=== PATIENT | female | born 1935 | race Caucasian/White ===

== ENCOUNTER 2016-12-18 10:06 | Outpatient (CLI) | payer OTHER ==
[2016-06-07 11:53] VITALS: BMI 25.2
[~2016-12-18 10:06] MED LIST: ASCO120C2 PO; ASPI81TA2 PO; CHOL100028 PO; HYDR12.585 PO; LISI10TA5 PO; OMEP40CA33 PO; SIMV40TA2 PO; TOPXL100 PO
== END 2016-12-18 18:55 | disposition home or self-care (01) ==
LOC: SMA 10:06
PROVIDERS: ATTEND Family Medicine
DX: Z12.31 Encounter for screening mammogram for malignant neoplasm of breast (principal)
CPT/HCPCS: G0202

== ENCOUNTER 2017-08-27 09:58 | Inpatient (IN) | payer OTHER ==
[~2017-08-27] VITALS: Ht 162.6 cm; Wt 67.1 kg
[2017-08-27] MEDS ORDERED: GABAPENTIN 300 MG CAPSULE ONE (10:38)
[2017-08-27] MEDS ORDERED: CELECOXIB 200 MG CAPSULE ONE (10:38)
[2017-08-27] MEDS ORDERED: ACETAMINOPHEN 500 MG TABLET ONE (10:38)
[2017-08-27] MEDS ORDERED: oxyCODONE HCL 10 MG TAB.ER.12H PO ONE ×2 (10:39→11:00)
[2017-08-27] MEDS ORDERED: TRANEXAMIC ACID 650 MG TABLET ONE (10:40)
[2017-08-27] MEDS ORDERED: GABAPENTIN 300 MG CAPSULE PO ONE (11:00)
[2017-08-27] MEDS ORDERED: ACETAMINOPHEN 500 MG TABLET PO ONE (11:00)
[2017-08-27] MEDS ORDERED: CEFAZOLIN 2 GM IVPB PREMIX 50 ML IV ONE (11:00)
[2017-08-27] MEDS ORDERED: CELECOXIB 200 MG CAPSULE PO ONE (11:00)
[2017-08-27] MEDS ORDERED: NACL 0.9% 1,000 ML IV ONE (11:00)
[2017-08-27] MEDS ORDERED: TRANEXAMIC ACID 650 MG TABLET PO ONE (11:00)
[2017-08-27] MEDS ORDERED: MUPIROCIN 2% TOPICAL OINTMENT 22 GM TP PRN (11:00)
[2017-08-27] MEDS ORDERED: POLYMYXIN 500,000/BACIT.10,000 UNITS in NS IRR 1 L IR ONE (11:04)
[2017-08-27] MEDS ORDERED: fentaNYL CITRATE/PF 100 MCG/2 ML AMP IVP ONE (11:50)
[2017-08-27] MEDS ORDERED: MIDAZOLAM HCL 5 MG/5 ML VIAL IVP ONE (11:50)
[2017-08-27] MEDS ORDERED: KETOROLAC TROMETHAMINE 30 MG VIAL IVP ONE (11:50)
[2017-08-27] MEDS ORDERED: SEVOFLURANE 15 MIN GAS INH ONE (11:50)
[2017-08-27] MEDS ORDERED: NS 50 ML BAG IV ONE (11:50)
[2017-08-27] MEDS ORDERED: ROPIVACAINE HCL/PF 5 MG/ML 0.5% 30 ML VIAL INJ ONE (11:50)
[2017-08-27] MEDS ORDERED: TRANEXAMIC ACID 1,000 MG/10 ML VIAL IV ONE (11:50)
[2017-08-27] MEDS ORDERED: PROPOFOL 200MG/ 20ML VIAL (DIPRIVAN) IV ONE (11:50)
[2017-08-27] MEDS ORDERED: ROCURONIUM BROMIDE 10 MG/ML (ZEMURON) IV ONE (11:50)
[2017-08-27] MEDS ORDERED: VANCOMYCIN HCL 1000 MG/VIAL IV ONE (11:50)
[2017-08-27] MEDS ORDERED: LR 1,000 ML IV.SOLN IV ONE (11:50)
[2017-08-27] MEDS ORDERED: EPINEPHrine 1 MG/ML AMP IVP ONE (11:50)
[2017-08-27] MEDS ORDERED: MEPERIDINE HCL/PF 100 MG/ML AMP IM ONE (11:50)
[2017-08-27] MEDS ORDERED: ONDANSETRON HCL 4 MG/2 ML VIAL IVP ONE (11:50)
[2017-08-27] MEDS ORDERED: MORPHINE SULFATE 10MG/10ML PF AMP EP ONE (11:50)
[2017-08-27] MEDS ORDERED: TRAM1TAB33 PO (12:23)
[2017-08-27] MEDS ORDERED: LISI-217 PO (12:23)
[2017-08-27] MEDS ORDERED: ROPIVACAINE 0.2% 550 ML INJ SCH ×2 (13:23→13:55)
[2017-08-27] MEDS ORDERED: LR 1,000 ML IV SCH (13:23)
[2017-08-27] MEDS ORDERED: NALBUPHINE HCL 10 MG/ML AMP IVP PRN (13:30)
[2017-08-27] MEDS ORDERED: ONDANSETRON HCL 4 MG/2 ML VIAL IVP PRN (13:30)
[2017-08-27] MEDS ORDERED: DIPHENHYDRAMINE INJ 50 MG/ML VIAL IVP PRN (13:30)
[2017-08-27] MEDS ORDERED: HYDROmorphone 1 MG INJ. 1 MG/ML AMPUL IVP PRN (13:30)
[2017-08-27] MEDS ORDERED: MORPHINE SULFATE 10 MG/ML VIAL IVP PRN ×4 (13:30→14:00)
[2017-08-27] MEDS ORDERED: METOCLOPRAMIDE HCL 10 MG/2 ML VIAL IVP PRN (13:30)
[2017-08-27] MEDS ORDERED: oxyCODONE HCL 5 MG TABLET PO PRN ×2 (14:00)
[2017-08-27] MEDS ORDERED: SENNOSIDES 8.6 MG TABLET PO PRN (14:00)
[2017-08-27] MEDS ORDERED: KETOROLAC TROMETHAMINE 15 MG VIAL IVP PRN (14:00)
[2017-08-27] MEDS: D5LR 1,000 ML IV SCH ×2 (16:05→18:50)
[2017-08-27 16:28] VITALS: BP_SYST 136
[2017-08-27 16:30] VITALS: BP_SYST 136
[2017-08-27 17:00] VITALS: BP_SYST 136
[2017-08-27 18:49] VITALS: BP_SYST 98
[2017-08-27] MEDS: CEFAZOLIN 1 GM IVPB PREMIX 50 ML IV SCH (18:49)
[2017-08-27 19:30] VITALS: BP_SYST 93
[2017-08-27 19:31] LABS: BASOPHILS # (AUTO) 0.1 K/uL (0.0-0.2); BASOPHILS % (AUTO) 0.7 % (0.0-2.0); HEMOGLOBIN 10.1 g/dL (12.0-16.0); LYMPHOCYTES % (AUTO) 8.3 % (20.5-51.5); MEAN CORPUSCULAR HEMOGLOBIN 28 pg (27-31); MEAN CORPUSCULAR HGB CONC 33 % (32-36); MEAN CORPUSCULAR VOLUME 86 fL (79.0-98.0); MONOCYTES # (AUTO) 0.4 K/uL (0.0-1.0); MONOCYTES % (AUTO) 3.3 % (1.7-9.3); NEUTROPHILS # (AUTO) 10.2 K/uL (1.8-7.7); NEUTROPHILS % (AUTO) 87.7 % (40.0-70.0); PLATELET COUNT (AUTO) 186 K/uL (130-430); RED BLOOD CELL COUNT(AUTO) 3.62 MIL/uL (4.2-6.2); RED CELL DISTRIBUTION WIDTH 12.4 % (9.0-15.0); WHITE BLOOD COUNT (AUTO) 11.7 K/uL (4.8-10.8)
[2017-08-27] MEDS ORDERED: NS 500 ML IV ONE (19:55)
[2017-08-27 20:58] VITALS: BP_SYST 118
[2017-08-27] MEDS: ACETAMINOPHEN 500 MG TABLET PO SCH (21:00)
[2017-08-27] MEDS: CHOLECALCIFEROL (VITAMIN D3) 2,000 UNIT TABLET PO SCH (21:00)
[2017-08-27] MEDS: CELECOXIB 200 MG CAPSULE PO SCH (21:00)
[2017-08-27] MEDS: GABAPENTIN 300 MG CAPSULE PO SCH (21:00)
[2017-08-28] VITALS (7 sets, daily range): BP systolic 99–142
[2017-08-28] MEDS: CEFAZOLIN 1 GM IVPB PREMIX 50 ML IV SCH ×2 (02:21→09:37)
[2017-08-28] MEDS: D5LR 1,000 ML IV SCH ×3 (02:22→21:02)
[2017-08-28 06:14] LABS: BASOPHILS # (AUTO) 0.1 K/uL (0.0-0.2); BASOPHILS % (AUTO) 0.7 % (0.0-2.0); HEMATOCRIT 29.8 % (36-48); HEMOGLOBIN 9.6 g/dL (12.0-16.0); LYMPHOCYTES # (AUTO) 0.8 K/uL (1.0-5.5); LYMPHOCYTES % (AUTO) 7.7 % (20.5-51.5); MEAN CORPUSCULAR HEMOGLOBIN 28 pg (27-31); MEAN CORPUSCULAR HGB CONC 32 % (32-36); MEAN CORPUSCULAR VOLUME 85 fL (79.0-98.0); MONOCYTES # (AUTO) 0.5 K/uL (0.0-1.0); MONOCYTES % (AUTO) 4.4 % (1.7-9.3); NEUTROPHILS % (AUTO) 87.2 % (40.0-70.0); PLATELET COUNT (AUTO) 186 K/uL (130-430); RED BLOOD CELL COUNT(AUTO) 3.49 MIL/uL (4.2-6.2); RED CELL DISTRIBUTION WIDTH 12.3 % (9.0-15.0); WHITE BLOOD COUNT (AUTO) 10.4 K/uL (4.8-10.8)
[2017-08-28 06:49] LABS: ANION GAP 7 (5-15); CALCIUM 8.2 mg/dL (8.4-11.0); CHLORIDE 104 mmol/L (98-107); CREATININE 0.58 mg/dL (0.55-1.30); GLUCOSE 185 mg/dL (70-99); SODIUM SERUM 138 mmol/L (136-145); UREA NITROGEN, BLOOD 17 mg/dL (8-21)
[2017-08-28] MEDS: METOPROLOL SUCCINATE 50 MG TAB.SR.24H (TOPROL XL) PO SCH ×2 (09:00→11:40)
[2017-08-28] MEDS: LISINOPRIL 10 MG TABLET (PRINIVIL) PO SCH ×2 (09:00→11:39)
[2017-08-28] MEDS ORDERED: LISINOPRIL PO SCH (09:00)
[2017-08-28] MEDS ORDERED: HCTZ PO SCH (09:00)
[2017-08-28] MEDS: HYDROCHLOROTHIAZIDE 12.5 MG CAPSULE (HCTZ) PO SCH ×2 (09:00→11:39)
[2017-08-28] MEDS: RIVAROXABAN 10 MG TABLET PO SCH (09:36)
[2017-08-28] MEDS: CELECOXIB 200 MG CAPSULE PO SCH ×2 (09:37→21:03)
[2017-08-28] MEDS: OMEPRAZOLE 20 MG CAPSULE.DR (PriLOSEC) PO SCH (09:37)
[2017-08-28] MEDS: SIMVASTATIN 40 MG TABLET PO SCH (09:37)
[2017-08-28] MEDS: CHOLECALCIFEROL (VITAMIN D3) 2,000 UNIT TABLET PO SCH ×2 (09:37→21:07)
[2017-08-28] MEDS: ACETAMINOPHEN 500 MG TABLET PO SCH ×3 (09:37→21:07)
[2017-08-28] MEDS: GABAPENTIN 300 MG CAPSULE PO SCH (21:04)
[2017-08-29 00:59] VITALS: BP_SYST 97
[2017-08-29] MEDS: D5LR 1,000 ML IV SCH (05:32)
[2017-08-29 06:32] LABS: CALCIUM 8.6 mg/dL (8.4-11.0); CHLORIDE 109 mmol/L (98-107); CREATININE 0.48 mg/dL (0.55-1.30); GLUCOSE 125 mg/dL (70-99); POTASSIUM 3.6 mmol/L (3.5-5.1); SODIUM SERUM 141 mmol/L (136-145); UREA NITROGEN, BLOOD 9 mg/dL (8-21)
[2017-08-29 06:33] LABS: BASOPHILS % (AUTO) 0.1 % (0.0-2.0); EOSINOPHILS % (AUTO) 0.1 % (0.0-4.0); HEMATOCRIT 26.7 % (36-48); HEMOGLOBIN 8.7 g/dL (12.0-16.0); LYMPHOCYTES # (AUTO) 0.9 K/uL (1.0-5.5); LYMPHOCYTES % (AUTO) 13.4 % (20.5-51.5); MEAN CORPUSCULAR HEMOGLOBIN 28 pg (27-31); MEAN CORPUSCULAR HGB CONC 33 % (32-36); MEAN CORPUSCULAR VOLUME 85 fL (79.0-98.0); MONOCYTES # (AUTO) 0.5 K/uL (0.0-1.0); MONOCYTES % (AUTO) 6.5 % (1.7-9.3); NEUTROPHILS # (AUTO) 5.6 K/uL (1.8-7.7); NEUTROPHILS % (AUTO) 79.9 % (40.0-70.0); PLATELET COUNT (AUTO) 157 K/uL (130-430); RED BLOOD CELL COUNT(AUTO) 3.14 MIL/uL (4.2-6.2); RED CELL DISTRIBUTION WIDTH 12.3 % (9.0-15.0)
[2017-08-29 06:40] LABS: ANION GAP < 3 (5-15)
[2017-08-29 08:33] VITALS: BP_SYST 132
[2017-08-29] MEDS: SIMVASTATIN 40 MG TABLET PO SCH (10:10)
[2017-08-29] MEDS: CHOLECALCIFEROL (VITAMIN D3) 2,000 UNIT TABLET PO SCH (10:10)
[2017-08-29] MEDS: METOPROLOL SUCCINATE 50 MG TAB.SR.24H (TOPROL XL) PO SCH (10:11)
[2017-08-29] MEDS: ACETAMINOPHEN 500 MG TABLET PO SCH ×2 (10:18→15:17)
[2017-08-29] MEDS: OMEPRAZOLE 20 MG CAPSULE.DR (PriLOSEC) PO SCH (10:19)
[2017-08-29] MEDS: RIVAROXABAN 10 MG TABLET PO SCH (10:20)
[2017-08-29] MEDS: CELECOXIB 200 MG CAPSULE PO SCH (10:20)
[2017-08-29] MEDS: LISINOPRIL 10 MG TABLET (PRINIVIL) PO SCH (10:20)
[2017-08-29] MEDS: HYDROCHLOROTHIAZIDE 12.5 MG CAPSULE (HCTZ) PO SCH (10:21)
[2017-08-29 12:11] VITALS: BP_SYST 143
[2017-08-29 16:31] VITALS: BP_SYST 129
[2017-08-29 16:49] VITALS: BP_SYST 111
[2017-08-30] MEDS ORDERED: ONDANSETRON HCL 4 MG/2 ML VIAL IVP PRN (14:00)
[2017-08-30] MEDS ORDERED: DIPHENHYDRAMINE HCL 25 MG CAPSULE PO PRN (14:00)
[2017-08-30] MEDS ORDERED: PROMETHAZINE HCL 25 MG/ML AMP IVP PRN (14:00)
== END 2017-08-29 17:28 | DRG 470 ==
LOC: SMU 09:58 → STU 16:45 → SMU 08-28 23:15
PROVIDERS: ADMIT Orthopaedic Surgery; ATTEND Orthopaedic Surgery
PROC: 0SRC0J9 Replacement of Right Knee Joint with Synthetic Substitute, Cemented, Open Approach (ICD-10-PCS; principal; 2017-08-27 12:00)
DX: M17.11 Unilateral primary osteoarthritis, right knee (principal); I10 Essential (primary) hypertension; Z96.652 Presence of left artificial knee joint
CPT/HCPCS: 36415; 80048; 85025; 87081; 88305; 88311; 94010; 97110-GP; 97116-GP; 97530-GP; C1713; C1776; J0171; J0690; J1885; J2175; J2250; J2274; J2405; J2704; J2795; J3010; J3370; J3490; J7030; J7040; J7120

== ENCOUNTER 2017-10-09 10:35 | Day surgery (SDC) | payer OTHER ==
[~2017-10-09] VITALS: Ht 162.6 cm; Wt 63.5 kg
[~2017-10-09 10:35] MED LIST changes: +LISI-217 PO; +TRAM1TAB33 PO
[2017-10-09] MEDS ORDERED: CEFAZOLIN SOD 2 GM in D5W 50 ML IV ONE (12:00)
[2017-10-09] MEDS ORDERED: HYDROcodone/ACETAMIN 7.5-325 MG TAB PO PRN (12:30)
[2017-10-09] MEDS ORDERED: PROMETHAZINE HCL 25 MG/ML AMP IVP PRN (12:30)
[2017-10-09] MEDS ORDERED: DIPHENHYDRAMINE HCL 25 MG CAPSULE PO PRN (12:30)
[2017-10-09] MEDS ORDERED: MORPHINE 4 MG/ML INJ. SYRINGE IVP PRN (12:30)
[2017-10-09] MEDS ORDERED: ONDANSETRON HCL 4 MG/2 ML VIAL IVP PRN (12:30)
[2017-10-09] MEDS ORDERED: SENNOSIDES 8.6 MG TABLET PO PRN (12:30)
[2017-10-09] MEDS ORDERED: BUPIVACAINE /PF 0.75% 10 ML VIAL INJ ONE (12:45)
[2017-10-09] MEDS ORDERED: LR 1,000 ML IV.SOLN IV ONE (12:45)
[2017-10-09 13:54] VITALS: BP_SYST 116
[2017-10-09] MEDS ORDERED: NON-FORMULARY MEDICATION (Tramadol Hcl/Acetaminophen (Acetaminophn-Tramadol 325-37.5) 1 TA PO SCH (15:00)
[2017-10-09] MEDS: D5LR 1,000 ML IV SCH (15:37)
[2017-10-09 18:29] VITALS: BP_SYST 123
[2017-10-09 20:05] VITALS: BP_SYST 120
[2017-10-09] MEDS: HYDROcodone/ACETAMIN 5-325 MG TAB (NORCO/ VICODIN) PO PRN (20:08)
[2017-10-09] MEDS: CHOLECALCIFEROL (VITAMIN D3) 2,000 UNIT TABLET PO SCH (20:08)
[2017-10-09 23:57] VITALS: BP_SYST 98
[2017-10-10] MEDS: D5LR 1,000 ML IV SCH (00:07)
[2017-10-10 08:00] VITALS: BP_SYST 125
[2017-10-10] MEDS: HYDROcodone/ACETAMIN 5-325 MG TAB (NORCO/ VICODIN) PO PRN (08:50)
[2017-10-10] MEDS: CHOLECALCIFEROL (VITAMIN D3) 2,000 UNIT TABLET PO SCH (08:51)
[2017-10-10] MEDS ORDERED: HYDROCHLOROTHIAZIDE 12.5 MG CAPSULE (HCTZ) PO SCH (09:00)
[2017-10-10] MEDS ORDERED: OMEPRAZOLE 20 MG CAPSULE.DR (PriLOSEC) PO SCH (09:00)
[2017-10-10] MEDS ORDERED: ASPIRIN 81 MG TAB.CHEW PO SCH (09:00)
[2017-10-10] MEDS ORDERED: LISINOPRIL PO SCH (09:00)
[2017-10-10] MEDS ORDERED: SIMVASTATIN 40 MG TABLET PO SCH (09:00)
[2017-10-10] MEDS ORDERED: HCTZ PO SCH (09:00)
[2017-10-10] MEDS ORDERED: LISINOPRIL 10 MG TABLET (PRINIVIL) PO SCH (09:00)
[2017-10-10] MEDS ORDERED: METOPROLOL SUCCINATE 50 MG TAB.SR.24H (TOPROL XL) PO SCH (09:00)
[2017-10-10 12:29] VITALS: BP_SYST 133
[2017-10-10] MEDS ORDERED: HYDR-1189 (18:02)
[2017-10-10 18:23] VITALS: BP_SYST 132
[2017-10-10 18:37] VITALS: BP_SYST 138
== END 2017-10-10 19:07 | disposition home or self-care (01) ==
LOC: SDS 10:35 → SMU 10:41 → SDS 10-10 19:07
PROVIDERS: ATTEND Orthopaedic Surgery
DX: M24.661 Ankylosis, right knee (principal); Z98.890 Other specified postprocedural states
CPT/HCPCS: 27570; 87081; 97039; 97110; 97116; 97162; 97530; 97535; J0690; J3490; J7060; J7120 ×2

== ENCOUNTER 2017-11-13 15:44 | Outpatient (CLI) | payer OTHER ==
[~2017-11-13 15:44] MED LIST changes: +HYDR-1189; -TRAM1TAB33 PO
== END 2017-11-13 20:19 | disposition home or self-care (01) ==
LOC: SRD 15:44
PROVIDERS: ATTEND Orthopaedic Surgery
DX: M25.561 Pain in right knee (principal)
CPT/HCPCS: 93971

== ENCOUNTER 2022-04-17 14:55 | Emergency (ER) | payer BC, OTHER ==
[~2022-04-17] VITALS: Ht 162.6 cm; Wt 72.6 kg
[~2022-04-17 14:55] MED LIST changes: +ASPI-1155 PO; -ASPI81TA2 PO; -CHOL100028 PO; +CHOL100034 PO; -HYDR-1189; +HYDR-3919; +LISI10TA29 PO; -LISI10TA5 PO; +OMEP40CA20 PO; -OMEP40CA33 PO
[2022-04-17 15:00] VITALS: BP_SYST 133
--- NOTE | 2022-04-17 15:05 | NUR ---
Placed in room 2 . Placed on telemetry monitor, blood pressure machine and pulse oximeter. To gown for exam. Side rails up. Report given to FELICITAS PRINGLE.
--- NOTE | 2022-04-17 15:19 | NUR ---
ER DR. OLMEDO EXAMINING PT AT THE BEDSIDE
[2022-04-17] MEDS ORDERED: SIMETHICONE 80 MG TAB.CHEW PO ONE (15:30)
[2022-04-17] MEDS ORDERED: ACETAMINOPHEN 500 MG TABLET PO ONE (15:30)
--- NOTE | 2022-04-17 15:33 | NUR ---
PT. brought to ER by family, complaing of neck pain and constant burping for last two weeks. Pt is Awake and alert AOx4, and ambulatory. No SOB, Pt denied N/V. Pt. stated pain to be 7/10 at the current time. VSS. PERRLA. Skin warm and dry. Cap refill < 3 sec.
[2022-04-17 16:07] LABS: BASOPHILS # (AUTO) 0.1 K/uL (0.0-0.2); BASOPHILS % (AUTO) 1.2 % (0.0-2.0); EOSINOPHILS # (AUTO) 0.1 K/uL (0.0-0.4); EOSINOPHILS % (AUTO) 0.7 % (0.0-4.0); HEMATOCRIT 37.7 % (36-48); LYMPHOCYTES # (AUTO) 1.7 K/uL (1.0-5.5); LYMPHOCYTES % (AUTO) 18.7 % (20.5-51.5); MEAN CORPUSCULAR VOLUME 81 fL (79.0-98.0); MONOCYTES # (AUTO) 0.5 K/uL (0.0-1.0); MONOCYTES % (AUTO) 5.4 % (1.7-9.3); NEUTROPHILS # (AUTO) 6.6 K/uL (1.8-7.7); PLATELET COUNT (AUTO) 201 K/uL (130-430); RED BLOOD CELL COUNT(AUTO) 4.68 MIL/uL (4.2-6.2); RED CELL DISTRIBUTION WIDTH 14.4 % (9.0-15.0); WHITE BLOOD COUNT (AUTO) 8.8 K/uL (4.8-10.8)
[2022-04-17 16:15] LABS: ANION GAP 9 (5-15); CALCIUM 9.2 mg/dL (8.4-11.0); CHLORIDE 100 mmol/L (98-107); CREATININE 0.75 mg/dL (0.55-1.30); GLUCOSE 110 mg/dL (70-99); POTASSIUM 3.6 mmol/L (3.5-5.1); SODIUM SERUM 135 mmol/L (136-145); UREA NITROGEN, BLOOD 11 mg/dL (8-21)
[2022-04-17 16:21] LABS: ALANINE AMINOTRANSFERASE 22 U/L (12-78); ALBUMIN 3.3 g/dL (3.4-4.8); ASPARTATE AMINOTRANSFERASE 22 U/L (10-37); TOTAL BILIRUBIN 0.6 mg/dL (0.0-1.0)
[2022-04-17] MEDS ORDERED: iohexoL 350 mgI/mL, 100 ML INFUS..BTL IV ONE (16:51)
--- NOTE | 2022-04-17 18:16 | NUR ---
Pt sitting in Room Comfortably, awaiting results and new MD orders. No SOB, VSS.
[2022-04-17] MEDS ORDERED: ACET-2634 PO (18:54)
[2022-04-17] MEDS ORDERED: FAMO20TA8 PO (18:55)
[2022-04-17] MEDS ORDERED: SIME80TA15 PO (18:55)
--- NOTE | 2022-04-17 19:00 | NUR ---
Patient given written and verbal discharge instructions and verbalizes understanding. ER MD discussed with patient the results and treatment provided. Patient in stable condition. ID arm band removed. Rx of Tylenol, pepcid, mylicon given. Patient educated on pain management and to follow up with PMD. Pain Scale . Opportunity for questions provided and answered. Medication side effect fact sheet provided.
[2022-04-17 20:54] VITALS: BP_SYST 133
== END 2022-04-17 20:54 | disposition home or self-care (01) ==
LOC: SED 14:55
DX: M54.2 Cervicalgia (principal); K44.9 Diaphragmatic hernia without obstruction or gangrene; I10 Essential (primary) hypertension; Z79.899 Other long term (current) drug therapy
CPT/HCPCS: 99285; 70498; 71046; 80053; 85025; 36415; 76376; Q9967